=== PATIENT | female | born 1975 | race Caucasian/White ===

== ENCOUNTER 2018-06-05 14:42 | Emergency (ER) | payer SELFPAY ==
[~2018-06-05] VITALS: Ht 154.9 cm; Wt 56.0 kg
[2018-06-05 14:50] VITALS: BP 155/79
== END 2018-06-05 18:38 | disposition left against medical advice (07) ==
LOC: ER 14:42
DX: Z04.3 Encounter for examination and observation following other accident (principal)
CPT/HCPCS: 72170; 81025; 99283